=== PATIENT | male | born 1960 | race Caucasian/White ===

== ENCOUNTER 2019-01-07 09:52 | Inpatient (IN) ==
--- NOTE | 2018-12-25 08:56 | PAT Medication Instructions ---
Medication Instructions Date of Service December 25, 2018 Home Medications aspirin [Aspir-81] 81 mg PO QAM bupropion HCl [Wellbutrin XL] 150 mg PO QAM citalopram 40 mg PO QAM diclofenac sodium 75 mg PO BID losartan 25 mg PO QAM magnesium 250 mg PO HS metoprolol tartrate 25 mg PO BID pravastatin 80 mg PO QAM thiamine HCl (vitamin B1) [Vitamin B-1] 250 mg PO QPM ASK your surgeon for instructions aspirin [Aspir-81] 81 mg PO QAM - keep taking per Dr. Newman's office diclofenac sodium 75 mg PO BID (similar to Advil, Ibuprofen) - Can take Tylenol DO NOT take the morning of surgery losartan 25 mg PO QAM Take morning of surgery With a small sip of water, OTHERWISE NOTHING TO EAT OR DRINK AFTER MIDNIGHT: bupropion HCl [Wellbutrin XL] 150 mg PO QAM citalopram 40 mg PO QAM metoprolol tartrate 25 mg PO BID pravastatin 80 mg PO QAM Take evening before surgery magnesium 250 mg PO HS metoprolol tartrate 25 mg PO BID thiamine HCl (vitamin B1) [Vitamin B-1] 250 mg PO QPM Other Notes If you have any questions please call us at [phone] or [phone] or [phone] or [phone]
--- NOTE | 2018-12-25 09:17 | Anesthesiology Consultation ---
Date of Service December 25, 2018 Assessment & Plan (1) Encounter for pre-operative examination: - Patient does have HOCM. Cardiology discussed the many risks with patient from a cardio standpoint, but patient wishes to proceed with surgery. Case was discussed between Dr. Barry and Dr. Newman. I discussed the case with Dr. Beavers to make him aware of situation. Will proceed with surgery. Chart Review Chart Review: Acceptable Risk for Surgery and Patient seen in Pre Admission Testing Consults Requested cardiac (Dr. Barry (12/28)) Patient was seen by cardiology on 12/28/18 for preoperative evaluation. Per note from that visit, "I had a long discussion with the patient regarding his significant cardiac risks at his 12/28/18 office visit. I reviewed with him over the phone the results of his pharmacological stress test from 12/29/18. He is in agonizing back pain and understands his significant cardiac risks associated with surgery. He and I discussed the possibility of further cardiac evaluation and treatment at a major tertiary care center and he understands his cardiac risks, but he wishes to proceed on with the planned back surgery. I would recommend perioperative cardiac monitoring. I would recommend the patient receive his metoprolol tartrate the morning of surgery with a sip of water. In light of the patient's significant cardiac history, I would strongly recommend cardiology consultation and perioperative cardiac monitoring with your hospital cardiology team." This was discussed between Dr. Newman and Dr. Barry. Teaching & Discussion Pre-Anesthesia Teaching/Discussion Notes: Instructed NPO after midnight before surgery, except medications with 15 cc of water. Medication instructions p rovided according to the PAT guidelines. History Surgery Operation Date: 01/07/19 09:50 Proposed Procedures p L5-S1 Removal Rods, L4-L5 Posterior Lumbar Interbody Fusion - Crow Newman, Height/Weight Height: 6 ft 1 in Weight: 111.6 kg Allergies Allergy/AdvReac Type Severity Reaction Status Date / Time clonazepam AdvReac Unknown NAUSEA/VOMI Verified 12/24/18 10:12 TING frovatriptan AdvReac Unknown NAUSEA/VOMI Verified 12/24/18 10:12 TING meperidine AdvReac Unknown NAUSEA/VOMI Verified 12/24/18 10:12 TING Medications Home Medications Medication Instructions Recorded Confirmed Last Taken aspirin [Aspir-81] 81 mg PO QAM 12/24/18 12/24/18 12/24/18 bupropion HCl [Wellbutrin XL] 150 mg PO QAM 12/24/18 12/24/18 12/24/18 citalopram 40 mg PO QAM 12/24/18 12/24/18 12/24/18 diclofenac sodium 75 mg PO BID 12/24/18 12/24/18 12/24/18 losartan 25 mg PO QAM 12/24/18 12/24/18 12/24/18 magnesium 250 mg PO HS 12/24/18 12/24/18 12/23/18 metoprolol tartrate 25 mg PO BID 12/24/18 12/24/18 12/24/18 pravastatin 80 mg PO QAM 12/24/18 12/24/18 12/24/18 thiamine HCl (vitamin B1) [Vitamin 250 mg PO QPM 12/24/18 12/24/18 12/23/18 B-1] Past Medical History Medical History Anxiety and depression HOCM (hypertrophic obstructive cardiomyopathy) Hyperlipidemia Hypertension LVH (left ventricular hypertrophy) Psoriatic arthritis Rotator cuff tear RIGHT Exercise / Class Metabolic Activity III < 4 Walking/Shop/Light housework (Limited due to joint/back pain. Able to slowly climb stairs. Denies CP or SOB. ) Past Family History Family History Father Family history of stomach cancer Other Family history of breast cancer in mother Family history of colon cancer in father Past Surgical History Surgical History History of cardiac cath X2 - (MOST RECENT ~2 YR AGO) - [place]; NEGATIVE History of colonoscopy History of eye surgery PRK BOTH EYES History of knee surgery R X4 History of lumbar fusion 04/01/16: MAC #4, ETT#8, HiLo Oral, Grade 3 View History of neck surgery CAGE AND SCREWS Hx of arthroscopy R AND L HIP Past Anesthesia History No Hx of Anesthesia Complications and No Family Hx of Anesthesia Complications Mom is slow to wake up History of PONV No Hx of PONV and No Hx of Motion Sickness Social History Smoking Status: Never smoker Do You Dip or Chew Tobacco: Yes (ADVISED NPO) Hx Alcohol Use: Yes alcohol intake frequency: other Alcohol Intake Frequency Comment: 2 BEERS A YR Hx Substance Use: No substance use type: does not use Review of Systems Patient denies chest pain, shortness of breath, dyspnea on exertion, reflux, cough, wheezing, palpitations. +Joint Pain (Hips, Hands, Ankles, Knees, Shoulders, Neck, Back) +Heart Palpitations (Wore loop recorder, no significant findings) Physical Exam Vital Signs BP: 131/73 P: 65 R: 18 T: 98.3 SPO2: 96% on RA ENMT Mouth: + dental restorations (upper partial) Thyromental Distance: > or= 3.5 Finger Breadths (4) Mallampati Class: I Mouth / Teeth: 1. Partial 2. Partial Neck normal visual inspection, trachea midline, + limited neck extension and + facial hair Respiratory normal respiratory effort Auscultation: lungs clear to auscultation bilaterally Cardiovascular Rate/Rhythm: regular rate and regular rhythm Heart Sounds: no murmur Vessels: no carotid bruit Neurologic moves all extremities Psychiatric Orientation: alert and oriented x 3 Testing Laboratory Results 12/25/18 09:32 PT 10.1 Seconds (9.0-12.0) 12/25/18 09:32 INR 1.0 (0.9-1.1) 12/25/18 09:32 APTT 26.3 Seconds (21.0-31.0) 12/25/18 09:32 Blood Type A Positive 12/25/18 09:32 Antibody Screen NEGATIVE 12/25/18 09:32 [facility] 11/13/18 SODIUM: 142 POTASSIUM: 4.0 CHLORIDE: 108 H CO2: 24.0 BUN: 9.3 CREATININE: 1.00 GLUCOSE: 117 H HgBA1C: 5.8 Electrocardiogram Date: 12/25/18 Findings: + SB @ (59) and + no change from (03/19/16) Voltage criteria for LVH ST & Marked T wave abnormality, consider anterolateral ischemia Prolonged QT Chest X-Ray Date: 12/25/18 Findings: + NAD FINDINGS: The cardiac and mediastinal contours remain stable. Postsurgical changes are present within the lower cervical spine. There is a stable 1 cm left upper lobe pulmonary nodule. This is likely benign. There is no failure. There is no focal pulmonary consolidation. There are no pleural effusions.[ IMPRESSION: 1. Stable 1 cm left upper lobe pulmonary nodule. The 2 year 9 month stability, strongly favors a benign process 2. No active disease in the chest. 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 LVOT: 2.2 Stress Test Date: 12/30/18 Type: nuclear Resting EF: 53% Abnormal left ventricular wall motion and contour with large area of anteroapical dyskinesis. No pharmacologically induced myocardial ischemia on stress images. 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
[2018-12-25 11:42] LABS: Basophils # (auto) 0.04 K/uL (0-0.2); Basophils % (auto) 0.4 %; Eosinophils # (auto) 0.16 K/uL (0-0.5); Eosinophils % (auto) 1.5 %; Hemoglobin 16.1 g/dL (14.0-18.0); Immature Granulocytes # (auto) 0.02 K/uL (0.00-0.02); Immature Granulocytes % (auto) 0.2 %; Lymphocytes # (auto) 2.31 K/uL (1.2-3.4); Mean Corpuscular Hgb Conc 35.8 g/dL (32-36); Mean Corpuscular Volume 89.8 fL (80-100); Mean Platelet Volume 9.8 fL (7.4-10.4); Monocytes # (auto) 1.02 K/uL (0.11-0.59); Monocytes % (auto) 9.3 %; Neutrophils # (auto) 7.43 K/uL (1.4-6.5); Neutrophils % (auto) 67.6 %; Platelet Count 233 K/uL (130-400); RDW Coefficient of Variation 13.6 % (11.5-14.5); RDW Standard Deviation 44.7 fL (36.4-46.3); Red Blood Count 5.01 M/uL (4.7-6.1); White Blood Count 10.98 K/uL (4.8-10.8)
[2018-12-25 11:55] LABS: Partial Thromboplastin Time 26.3 Seconds (21.0-31.0); Prothrombin Time 10.1 Seconds (9.0-12.0)
--- NOTE | 2018-12-25 12:32 | XRay Report ---
XR chest Pre-admission PA/Lat CLINICAL HISTORY: Preoperative chest COMPARISON STUDY: 03/19/2016 FINDINGS: The cardiac and mediastinal contours remain stable. Postsurgical changes are present within the lower cervical spine. There is a stable 1 cm left upper lobe pulmonary nodule. This is likely be nign. There is no failure. There is no focal pulmonary consolidation. There are no pleural effusions. [ IMPRESSION: 1. Stable 1 cm left upper lobe pulmonary nodule. The 2 year 9 month stability, strongly favors a socorro gn process 2. No active disease in the chest. Electronically signed by: Jesse Cuevas M.D. 12/25/2018 12:31 PM
--- NOTE | 2019-01-05 14:30 | History and Physical Report ---
DATE OF ADMISSION: 01/07/2019 CHIEF COMPLAINT: Back pain, buttock and lower extremity difficulty, and paresthesias. HISTORY OF PRESENT ILLNESS: Kodak is delightful, I operated on him several years ago. He developed a spondylolisthesis of the spine, nerve root irritation and pressure. He cannot get comfortable. He has failed conservative measures. He has a grade 1 spondylolisthesis. PAST MEDICAL HISTORY: Heart disease, anxiety, high cholesterol, hypertension. PAST SURGICAL HISTORY: Knee surgery x4, arthroscopy of the right hip and C4-C5 fusion and lumbar spine surgery. ALLERGIES: Negative. FAMILY HISTORY: Heart disease. SOCIAL HISTORY: . No alcohol, tobacco positive, little activity. REVIEW OF SYSTEMS: Twelve-system review is negative for fevers, sweats, chills. Ear, nose and throat negative. He does have some heart beat changes and palpitations. No nausea, vomiting. No urgency, frequency. He has sleep issues, depression. He admits to joint pain, stiffness, back and buttock pain. MEDICATIONS: Include aspirin, [place], metoprolol, Lipitor and losartan. PHYSICAL EXAMINATION: GENERAL: He is 6 feet 4 inches. He is 220 pounds. He is in moderate distress. He is alert, oriented. VITAL SIGNS: Blood pressure 130/80, pulse 80, respirations 16. HEENT: Essentially normal. CARDIAC: Normal S1, S2, no S3. LUNGS: Clear to auscultation. No rales, rhonchi, wheezing. ABDOMEN: Soft and nontender. MUSCULOSKELETAL: He has pain with percussion, pain with straight leg raising, slight weakness with dorsiflexion and plantarflexion. IMAGING DATA: X-rays demonstrate spondylolisthesis, lumbar spine. ASSESSMENT: Spondylolisthesis of the spine and nerve root irritation. PLAN: Includes instructions, precautions, education provided to the patient. Procedure is going to be a PLIF procedure L4-L5, removal of the rods L5-S1.
[~2019-01-07 09:52] MED LIST: ACETAMINOPHEN 1000 MG/100 ML IV IV SCH; CEFAZOLIN 2000MG 2,000 MG/15 ML SYR IV SCH; LR 15ML/HR IV SCH; SODIUM CHLORIDE 0.9% 1,000 ML IV SCH
[2019-01-07] MEDS ORDERED: PROPOFOL IV EMULSION 10 MG/ML 20 ML VIAL IV ONE (10:45)
[2019-01-07] MEDS ORDERED: ONDANSETRON INJ 2 MG/ML 2 ML VIAL ONE ×2 (10:45→14:21)
[2019-01-07] MEDS ORDERED: fentaNYL citrate 100 MCG/2 ML VIAL ONE ×3 (10:45→14:45)
[2019-01-07] MEDS ORDERED: DEXAMETHASONE SOD INJ 4 MG/ML VIAL ONE (10:45)
[2019-01-07] MEDS ORDERED: MIDAZOLAM HCL 1 MG/ML 2ML VIAL ONE (10:54)
[2019-01-07] MEDS ORDERED: ATROPINE SULFATE 0.1 MG/ML 10ML SYR IV PRN (11:36)
[2019-01-07] MEDS ORDERED: ePHEDrine sulfate 50 MG/ML AMP IV PRN (11:36)
[2019-01-07] MEDS ORDERED: fentaNYL citrate 100 MCG/2 ML VIAL IV PRN (11:36)
[2019-01-07] MEDS ORDERED: HYDROmorphone INJ 2 MG/ML SYR/VIAL IV PRN (11:36)
[2019-01-07] MEDS ORDERED: PROMETHAZINE HCL 6.25 MG in SODIUM CHLORIDE 0.9% 50 ML IV PRN (11:36)
[2019-01-07] MEDS ORDERED: ONDANSETRON INJ 2 MG/ML 2 ML VIAL IV PRN ×2 (11:36→16:38)
[2019-01-07] MEDS ORDERED: BUPIVACAINE/EPINEPHRINE 0.5% MPF 1:200,000 30 ML VIAL ONE (12:14)
[2019-01-07] MEDS ORDERED: VANCOMYCIN HCL 1000MG/20ML VIAL ONE (12:14)
[2019-01-07] MEDS ORDERED: THROMBIN FOR SOLN 20000 UNIT KIT ONE (12:14)
[2019-01-07] MEDS ORDERED: GELATIN SPONGE SZ 100 ONE (12:14)
[2019-01-07] MEDS ORDERED: BACITRACIN INJ 50,000 UNIT VIAL ONE (12:15)
--- NOTE | 2019-01-07 12:25 | History & Physical Bridge Note ---
Date of Service January 07, 2019 History & Physical Bridge Note I have examined the patient, reviewed the History & Physical and in the interval since the performance of the History & Physical I have noted the following changes of clinical significance: no changes noted
[2019-01-07] MEDS ORDERED: GLYCOPYRROLATE 0.2 MG/ML VIAL ONE (14:21)
[2019-01-07] MEDS ORDERED: PHENYLEPHRINE HCL 10 MG/ML VIAL ONE (14:21)
[2019-01-07] MEDS ORDERED: ROCURONIUM BROMIDE 10 MG/ML 5 ML VIAL ONE (14:21)
[2019-01-07] MEDS ORDERED: NEOSTIGMINE METHYLSULFATE 5 MG/5 ML SYR ONE (14:21)
[2019-01-07] MEDS ORDERED: KETAMINE HCL INJ 50 MG/ML 10 ML VIAL ONE (14:23)
--- NOTE | 2019-01-07 15:03 | Fluoroscopy Report ---
FL spine 1V any level CLINICAL HISTORY: L5-S1 GHULAM REMOVAL, L4-L5 POSTERIOR LUMBAR COMPARISON STUDY: Lumbar spine 11/18/2018. FLUOROSCOPY TIME: 7 seconds. FINDINGS: Single fluoroscopic spot image demonstrates posterior decompression and fusion with pedicle screws and rods at L4-L5. IMPRESSION: Fluoroscopy provided for posterior decompression fusion at L4-5. Electronically signed by: Gerhard Alegre M.D. 01/07/2019 3:02 PM
--- NOTE | 2019-01-07 15:11 | Post Operative Brief Note ---
PG Immediate Post Op with CF Date of Surgery January 07, 2019 Pre & Post Diagnosis Operation Date: 01/07/19 11:40 Pre-Op Diagnosis: Degenerative Spondylolisthesis Post-Op Diagnosis: Degenerative Spondylolisthesis Procedure Operation Date: 01/07/19 11:40 Actual Procedures p L5-S1 Harlan Removal, S1 screw removal, L4-L5 Posterior Lumbar Interbody Fusion(Not Applicable) - Crow Newman DO Surgeon Crow Newman DO Joint Creaser gilma Estimated Blood Loss 350 Findings Consistent with Post-Op Diagnosis Specimens Specimen Description: None collected per surgeon Drains Hemovac Drain Complications none Overlapping Procedure I was immediately available: during the entire case.
--- NOTE | 2019-01-07 15:41 | Anesthesiology Progress Note ---
Date of Service January 07, 2019 Anesthesia Post Procedure Vital Signs Vital Signs: Temp Pulse Resp BP Pulse Ox 01/07/19 10:24 36.6 C 52 L 16 108/75 93 Pain Intensity Left Buttock: Pain Intensity: 6 Transfer of Care Handoff Completed per policy Notes Mental Status: alert / awake / arousable Patient Amnestic to Procedure: Yes Nausea / Vomiting: adequately controlled Pain: adequately controlled Airway Patency, RR, SpO2: stable & adequate BP & HR: stable & adequate Hydration State: stable & adequate Anesthetic Complications: no major complications apparent
[2019-01-07] MEDS ORDERED: DO NOT ADMINISTER PNEUMOCOCCAL VACCINE PRN (16:38)
[2019-01-07] MEDS ORDERED: PROMETHAZINE HCL 12.5 MG in SODIUM CHLORIDE 0.9% 50 ML IV PRN (16:38)
[2019-01-07] MEDS ORDERED: ONDANSETRON 4 MG TAB PO PRN (16:38)
[2019-01-07] MEDS ORDERED: DO NOT ADMINISTER FLU VACCINE PRN (16:38)
[2019-01-07] MEDS ORDERED: NALOXONE HCL 0.4 MG/1 ML VIAL/CARP IV PRN (16:38)
[2019-01-07] MEDS ORDERED: METOCLOPRAMIDE HCL INJ 5 MG/ML 2 ML VIAL IV PRN (16:38)
[2019-01-07] MEDS ORDERED: HYDROmorphone INJ 0.5 MG/0.5 ML SYR IV PRN (16:38)
[2019-01-07] MEDS ORDERED: SOD PHOSPHATE/SOD BIPHOSPHATE ENEMA 132 ML BTL PR PRN (16:38)
[2019-01-07] MEDS ORDERED: MAGNESIUM HYDROXIDE SUSP 30 ML UDC PO PRN (16:38)
[2019-01-07] MEDS ORDERED: BISACODYL 10 MG SUPP PR PRN (16:38)
[2019-01-07] MEDS: SODIUM CHLORIDE 0.9% 1000ML 1,000 ML IV SCH (16:51)
[2019-01-07] MEDS: CEFAZOLIN 2000MG 2,000 MG/15 ML SYR IV SCH (18:32)
[2019-01-07] MEDS: OXYCODONE HCL IR 5 MG TAB (IMMEDIATE RELEASE) PO PRN (19:29)
[2019-01-07] MEDS ORDERED: NON-FORMULARY MEDICATION (Magnesium 250 MG) PO SCH (21:00)
[2019-01-07] MEDS: METOPROLOL TARTRATE 25 MG TAB PO SCH (21:56)
[2019-01-07] MEDS: DOCUSATE SODIUM/SENNA 50/8.6MG TAB PO SCH (21:56)
[2019-01-07] MEDS: THIAMINE HCL 100 MG TAB PO SCH (21:57)
[2019-01-07] MEDS: ACETAMINOPHEN 1,000 MG/100 ML VIAL IV PRN (21:58)
[2019-01-08] MEDS: CEFAZOLIN 2000MG 2,000 MG/15 ML SYR IV SCH (01:27)
[2019-01-08] MEDS: POLYETHYLENE (MIRALAX) 17 GM PACK PO SCH ×4 (05:41→23:39)
[2019-01-08] MEDS: ACETAMINOPHEN 1,000 MG/100 ML VIAL IV PRN (05:41)
[2019-01-08] MEDS: OXYCODONE HCL IR 5 MG TAB (IMMEDIATE RELEASE) PO PRN ×3 (06:47→20:43)
--- NOTE | 2019-01-08 08:05 | Operative Report ---
DATE OF OPERATION: 01/07/2019 PREOPERATIVE DIAGNOSIS: Spondylolisthesis and stenosis, lumbar spine L4-L5. POSTOPERATIVE DIAGNOSIS: Spondylolisthesis and stenosis, lumbar spine L4-L5. PROCEDURE: Include 1. Posterior approach lumbar spine, removal of the S1 pedicle screws, removal of a leslie between L5 and S1. 2. Decompression at L4 and L5 lumbar spine, foraminotomy, partial facetectomy. 3. Pedicle screw instrumentation L4-L5 lumbar spine. 4. Posterior lumbar interbody fusion L4-L5. 5. Posterolateral fusion L4-L5. Prior to patient coming back to the operating room, we identified him and marked him in the preop area. We did a formal bridge note. The patient was brought back to the operating room and general intubated anesthetic provided, the patient placed prone, scrubbed, prepped and draped sterile. I made a skin incision, fascial incision. I delicately dissected down to the lumbar spine, exposing the facet joint at L4-L5 and the old implants L5 to the sacrum. I carefully took off scar tissue. He was very rigid and firm at L5-S1. I think he had a complete fusion 100%. I removed the caps at L5-S1, removed the leslie. I also removed the S1 pedicle screw. I do not think it was needed a longer that he has solid fusion in addition to be in way of extending the fusion up higher. We then decompressed the neural canal getting pressure off at L4 and L5 of the lumbar spine, foraminotomy, partial facetectomy. There was overgrowth of bone profound ligamentum flavum hypertrophy. I was pleased with the decompression. There were no injuries to the associated structures. I then went up and instrumented the spine, safely getting pedicle screws into the 4th and 5th vertebrae. We then retracted the dura over on the left hand side and I prepared the interspace for interbody fusion. I did a formal discectomy, took out all disc material. I used the nain all the way up to a size 15. A 15 implant was selected. After it was selected, it was packed with a combination of allograft called DBM, demineralized bone matrix, and some autograft from the patient. We restored lordosis was tapped into place. We advanced at the anterior aspect of the spine, clamped down the spine in lordosis, tied up the implants. We irrigated thoroughly with about 600 mL of fluid. I then bone grafted out of the transverse processes 4 and 5 to complete the 360 degree fusion. We irrigated once again, closed in layers, #1 Vicryl, 2-0 and staple gun on the skin over a Hemovac drain. Sterile dressings applied. We did close over vancomycin powder as well. Sterile dressings applied. The patient returned to PACU stable. No apparent intraoperative complications. Sponge and needle count correct. SURGEON: Crow Newman DO AIRCRAFT MAINTENANCE ENGINEER: Max Phillip PA-C. IMPLANTS USED: By the Conjunct and bone graft used was demineralized bone matrix along with autograft. I attest to the content of the Intraoperative Record and any orders documented therein. Any exception s are noted below.
[2019-01-08] MEDS: SODIUM CHLORIDE 0.9% 1000ML 1,000 ML IV SCH ×2 (08:31→21:54)
[2019-01-08] MEDS: PRAVASTATIN SOD 40 MG TAB PO SCH (08:31)
[2019-01-08] MEDS: LOSARTAN POTASSIUM 25 MG TAB PO SCH (08:31)
[2019-01-08] MEDS: ASPIRIN 81 MG ECTAB PO SCH (08:31)
[2019-01-08] MEDS: METOPROLOL TARTRATE 25 MG TAB PO SCH ×2 (08:32→20:45)
[2019-01-08] MEDS: CITALOPRAM 40 MG TAB PO SCH (08:32)
--- NOTE | 2019-01-08 09:23 | Cardiology Consultation ---
Date of Consultation January 08, 2019 Assessment & Plan (1) Hypertrophic cardiomyopathy: He is well established apical variant of hypertrophic cardiomyopathy. Fortunately, this rarely produces symptoms of obstructive nature. However, the small cavity size can occasionally to hemodynamic derangements especially in the setting of volume loss. His current blood pressure looks good. He is eating and drinking well. I think we can simply monitor his vital signs on a routine basis and reinstitute his standard medical therapy. (2) Syncope: He has a history of syncope. It appears that he has had an extensive evaluation. Certainly in the setting of hypertrophic cardiomyopathy, even apical variant of some concern regarding malignant ventricular arrhythmias. However the these episodes appear to have been related more to a profound vasodepressor effect. He does describe circumstances in which this is likely to occur which includes coughing and straining. Will attempt to maintain night usually me a and limit hypovolemia during his hospitalization. He is currently on telemetry and can be monitored for more malignant arrhythmias. (3) Palpitations: He does describe intermittent palpitations. His record suggests that he has had episodes of ventricular tachycardia. He is certainly at risk for atrial fibrillation as well. He has not report recent palpitations. No arrhythmias currently on telemetry with the exception of rare PVCs. Continue beta-nelly. History of Present Illness Reason for Consultation: Hypertrophic cardiomyopathy Requesting Physician: Paty Attending Physician: Crow Newman DO History of Present Illness The patient is a 50-year-old gentleman with a longstanding history of hypertrophic cardiomyopathy, apical variant. He presented for back surgery due to intractable back pain in evidence of sciatic nerve impingement. He was advised by his primary blender machine operator to have a cardiology evaluation while he was an inpatient. This morning the patient states that he is feeling well. He states that the burning sensation in his leg appears to have resolved subsequent to his surgery yesterday. He states that in general he has been limited by his orthopedic disease. In addition to the leg pain he has significant hip discomfort as well. Does report some mild dyspnea with activities on occasion but this is not appear to be limiting. He has had episodes of dizziness and syncope in the past, but with some lifestyle modifications he has not had an episode in nearly 3 years by his report. He will occasionally notice a sense of palpitation. Can have several episodes of palpitation in a week and then no palpitations for up to a year. The episodes themselves last approximately 1 minute and do not appear to be associated with other symptoms. No symptoms of chest pain. Did not report symptoms of orthopnea or paroxysmal nocturnal dyspnea. He does have difficulty sleeping at night due to orthopedic disease. He has occasional swelling in his lower extremities that he attributes to arthritis. Allergies Allergy/AdvReac Type Severity Reaction Status Date / Time clonazepam AdvReac Unknown NAUSEA/VOMI Verified 01/07/19 10:17 TING frovatriptan AdvReac Unknown NAUSEA/VOMI Verified 01/07/19 10:17 TING meperidine AdvReac Unknown NAUSEA/VOMI Verified 01/07/19 10:17 TING Home Medications Home Medications Medication Instructions Recorded Confirmed Type aspirin [Aspir-81] 81 mg PO QAM 12/24/18 12/24/18 History citalopram 40 mg PO QAM 12/24/18 12/24/18 History losartan 25 mg PO QAM 12/24/18 12/24/18 History magnesium 250 mg PO HS 12/24/18 12/24/18 History metoprolol tartrate 25 mg PO BID 12/24/18 12/24/18 History pravastatin 80 mg PO QAM 12/24/18 12/24/18 History thiamine HCl (vitamin B1) [Vitamin 250 mg PO QPM 12/24/18 12/24/18 History B-1] Patient History Medical History Anxiety and depression HOCM (hypertrophic obstructive cardiomyopathy) Hyperlipidemia Hypertension LVH (left ventricular hypertrophy) Psoriatic arthritis Rotator cuff tear RIGHT Surgical History History of cardiac cath X2 - (MOST RECENT ~2 YR AGO) - [place]; NEGATIVE History of colonoscopy History of eye surgery PRK BOTH EYES History of knee surgery R X4 History of lumbar fusion 04/01/16: MAC #4, ETT#8, HiLo Oral, Grade 3 View History of neck surgery CAGE AND SCREWS Hx of arthroscopy R AND L HIP Family History Father Family history of stomach cancer Other Family history of breast cancer in mother Family history of colon cancer in father Social History Preferred Language: Syriac Communication Ability: Effective Parachute Harness Rigger Required: No Beliefs That Will Affect Care: None Current Living Situation: Spouse Other Information That Helps Us Care for You: No Feels Safe at Home: Yes Smoking Status: Never smoker Do You Dip or Chew Tobacco: No ; Second Hand Exposure: No ; Tobacco Cessation Education Requested by Patient: No Hx Alcohol Use: No Hx Substance Use: No Review of Systems Review of Systems: All systems reviewed & are unremarkable except as noted in HPI & below Physical Exam Physical Exam: The patient is alert and oriented. Mood and affect appeared normal. He answered all questions appropriately. HEENT: Pupils are equal and reactive to light and accommodation. Extraocular movements are intact. The sclerae are anicteric. Neuro: Cranial nerves intact Neck: Patient's neck is supple. He has palpable carotid pulses bilaterally without bruits on auscultation. There is no evidence of jugular venous distention. The thyroid is not enlarged. Lungs: Clear to auscultation bilaterally. He has good air movement without use of accessory muscles. No rales wheezes or rhonchi. Cardiac: Heart demonstrates a regular rate and rhythm. Normal S1 and S2. No murmurs on examination. Chest: Scar in the left upper pectoral area. Pulses: The patient has palpable radial pulses bilaterally that are equal in intensity Extremities: There was no evidence of hypoperfusion. There is no cyanosis or clubbing. There is no edema. Skin: I did not appreciate any rashes on examination today. Results & Data Vital Signs (Past 12 Hours) Vital Signs Temp Pulse Pulse Resp BP Pulse Ox 01/08/19 08:11 36.8 C 76 18 124/72 96 01/08/19 03:30 36.6 C 71 18 120/71 96 01/07/19 23:35 37.1 C 66 18 107/61 92 01/07/19 23:00 71 Diagnostic Findings I reviewed his records from his blender machine operator in [place]. Echocardiogram performed in October 2018 revealed overall preserved LV systolic function with evidence of apical hypertrophy and some aneurysmal dilation of the apex. Only mild valvular heart disease. Cardiac catheterization performed in 2015 did not reveal any evidence of obstructive coronary disease. ECG Additional Comments: EKG demonstrates normal sinus rhythm with a typical pattern for hypertrophic cardiomyopathy, apical variant PG Care Time/CCT Total # of Minutes Spent Total Time Spent with Patient: Total time spent is greater than 50% in coordination of care (as documented) at patient's floor/unit and/or counseling patient:
[2019-01-08] MEDS: DOCUSATE SODIUM/SENNA 50/8.6MG TAB PO SCH (20:43)
[2019-01-08] MEDS: THIAMINE HCL 100 MG TAB PO SCH (20:43)
[2019-01-09] MEDS: POLYETHYLENE (MIRALAX) 17 GM PACK PO SCH (06:22)
[2019-01-09] MEDS: LOSARTAN POTASSIUM 25 MG TAB PO SCH (08:37)
[2019-01-09] MEDS: ASPIRIN 81 MG ECTAB PO SCH (08:37)
[2019-01-09] MEDS: CITALOPRAM 40 MG TAB PO SCH (08:37)
[2019-01-09] MEDS: METOPROLOL TARTRATE 25 MG TAB PO SCH (08:37)
[2019-01-09] MEDS: PRAVASTATIN SOD 40 MG TAB PO SCH (08:37)
--- NOTE | 2019-01-09 08:42 | Cardiology Progress Note ---
Date of Service January 09, 2019 Assessment & Plan (1) Hypertrophic cardiomyopathy: No current symptoms. Overall hemodynamics appear acceptable. He appears euvolemic. (2) Syncope: No symptoms of dizziness, lightheadedness or presyncope. No syncopal episodes and no arrhythmias identified on telemetry. (3) Palpitations: No symptoms of palpitations during this admission. Only isolated PVCs on telemetry. Certainly acceptable for discharge from a cardiology standpoint. No need for a change in his current medical therapy. Patient will follow up with his primary office services representative on a routine basis. Subjective This morning claims to be feeling well. He has some discomfort at the operative site but his leg pain is resolved. He was ambulatory yesterday did not describe symptoms of dizziness or lightheadedness. He has no presyncopal symptoms. He has not experience palpitations. No symptoms of chest discomfort or respiratory symptoms. Review of Systems Review of Systems: Per HPI Physical Exam Physical Exam: The patient is alert and oriented. Mood and affect appeared normal. He answered all questions appropriately. HEENT: Pupils are equal and reactive to light and accommodation. Extraocular movements are intact. The sclerae are anicteric. Neuro: Cranial nerves intact Lungs: Clear to auscultation bilaterally. He has good air movement without use of accessory muscles. No rales wheezes or rhonchi. Cardiac: Heart demonstrates a regular rate and rhythm. Normal S1 and S2. No murmurs on examination. Pulses: The patient has palpable radial pulses bilaterally that are equal in intensity Extremities: There was no evidence of hypoperfusion. There is no cyanosis or clubbing. There is no edema. Skin: I did not appreciate any rashes on examination today. Results & Data Vital Signs (Past 12 Hours) Vital Signs Temp Pulse Pulse Resp BP BP Pulse Ox 01/09/19 07:26 36.8 C 73 19 107/64 97 01/09/19 02:31 37 C 81 20 118/64 94 01/09/19 02:04 78 01/08/19 23:36 37.5 C 85 19 92/53 L 93 Laboratory Results Abnormal Lab Results 01/09/19 07:24 POC Glucose 152 H ECG Additional Comments: Telemetry demonstrated only isolated PVCs without other arrhythmia. PG Care Time/CCT Total # of Minutes Spent Total Time Spent with Patient: Total time spent is greater than 50% in coordination of care (as documented) at patient's floor/unit and/or counseling patient:
[2019-01-09] MEDS: OXYCODONE HCL IR 5 MG TAB (IMMEDIATE RELEASE) PO PRN (10:42)
--- NOTE | 2019-01-09 15:18 | Discharge Summary ---
SUBJECTIVE: He is alert and oriented. Minimal complaints of pain, doing well. Better motion, decreased pain, taking p.o. pain controlled. OBJECTIVE: Vital signs stable, including temperature and blood pressure. Wounds clean. [employer] had an uneventful 48-hour stay, he is doing well, he will be discharged home. His instructions and precautions are on the chart. A discharge prescription of [place] and a followup appointment has been made.
== END 2019-01-09 11:20 | disposition home or self-care (01) | DRG 455 ==
LOC: ASU 09:52 → 2S 15:24

== ENCOUNTER 2024-03-22 05:39 | Inpatient (IN) ==
--- NOTE | 2024-03-03 09:10 | PAT Medication Instructions ---
Medication Instructions Date of Service March 03, 2024 Home Medications Medication Instructions Recorded gabapentin 300 mg capsule 300 mg PO BID #60 caps 02/16/24 celecoxib 200 mg capsule (Celebrex) 200 mg PO BID PRN pain #60 caps 02/18/24 tizanidine 4 mg tablet 4 mg PO BID PRN muscle spasticity 02/18/24 #30 tabs tramadol 50 mg tablet 50 mg PO TID PRN pain #30 tabs 02/18/24 aspirin 81 mg tablet,delayed release (Aspir-) 81 mg PO QAM magnesium 250 mg tablet 250 mg PO HS metoprolol tartrate 25 mg tablet 25 mg PO QAM pravastatin 80 mg tablet 80 mg PO QAM ezetimibe 10 mg tablet 10 mg PO QAM gabapentin 300 mg capsule 300 mg PO BID ropinirole 3 mg tablet 3 mg PO BID celecoxib 200 mg capsule (Celebrex) 200 mg PO BID PRN pain tizanidine 4 mg tablet 4 mg PO BID PRN muscle spasticity tramadol 50 mg tablet 50 mg PO TID PRN pain calcium carbonate 500 mg PO QAM cholecalciferol (vitamin D3) 25 mcg (1,000 unit) capsule (Vitamin D3) 25 mcg PO QPM metoprolol tartrate 25 mg tablet 12.5 mg PO HS ASK your surgeon for instructions celecoxib 200 mg capsule (Celebrex) 200 mg PO BID PRN pain ASK your prescriber and surgeon aspirin 81 mg tablet,delayed release (Aspir-) 81 mg PO QAM DO NOT take the morning of surgery calcium carbonate 500 mg PO QAM Take morning of surgery With a small sip of water, OTHERWISE NOTHING TO EAT OR DRINK AFTER MIDNIGHT: metoprolol tartrate 25 mg tablet 25 mg PO QAM pravastatin 80 mg tablet 80 mg PO QAM ezetimibe 10 mg tablet 10 mg PO QAM gabapentin 300 mg capsule 300 mg PO BID ropinirole 3 mg tablet 3 mg PO BID tizanidine 4 mg tablet 4 mg PO BID PRN muscle spasticity (if needed) tramadol 50 mg tablet 50 mg PO TID PRN pain (if needed) Take evening before surgery magnesium 250 mg tablet 250 mg PO HS gabapentin 300 mg capsule 300 mg PO BID ropinirole 3 mg tablet 3 mg PO BID tizanidine 4 mg tablet 4 mg PO BID PRN muscle spasticity (if needed) tramadol 50 mg tablet 50 mg PO TID PRN pain (if needed) cholecalciferol (vitamin D3) 25 mcg (1,000 unit) capsule (Vitamin D3) 25 mcg PO QPM metoprolol tartrate 25 mg tablet 12.5 mg PO HS Other Notes If you have any questions please call us at [phone] or [phone] or [phone] or [phone]
--- NOTE | 2024-03-16 13:34 | Anesthesiology Consultation ---
Date of Service March 16, 2024 Assessment & Plan (1) Encounter for pre-operative examination: - cardiology pre-operative evaluation 03/19/24: "...preoperative cardiac clearance...doing overall well...resp: respiration rate is normal. Percussion is resonant and equal. Lungs are clear bilaterally. Chest is normal to inspection and palpation...last ICD check on 03/09/24 reveals 10% ventricular pacing, no episodes of arrhythmias noted...do not recommend further invasive or noninvasive cardiovascular testing or procedures prior to proceeding with planned surgery...well optimized from a cardiac standpoint to proceed..." No ICD report received, but summarized as above. - Patient was not agreeable to have appointment with PCP, per documentation PCP advised awaiting cardiology clearance. - will request most recent ICD report Lori mary. Patient was also advi sed at [facility] appointment that he would need medical clearance given end expiratory wheezing (he notes had a cold recently but feels well) and cardiology clearance. Workload note sent. Optimization form needs faxed to cardiology. Surgeon's office made aware. - cardiology office visit 06/09/23: "...follow up of cardiomyopathy...apical hypertrophic cardiomyopathy...in his usual state of health...no signs or symptoms of congestive heart failure...denies syncope or near syncope...no ICD shocks...do not have ICD interrogation reports...ICD interrogated in [place]... no indication for invasive or noninvasive cardiovascular testing or procedures..." Chart Review Chart Review: Acceptable Risk for Surgery and Patient seen in Pre Admission Testing Teaching & Discussion Pre-Anesthesia Teaching/Discussion Notes: Instructed NPO after midnight before surgery, except medications with 15 cc of water. Medication instructions provided according to the [facility] guidelines. History Surgery Operation Date: 03/22/24 07:15 Proposed Procedures p L3-L4 Posterior Laminectomy with Interbody Cage, Lateral Lumbar Interbody Fusion L3-L4, L4-L5 Non-segmented Removal of Instrumentation and Exploration of Fusion, Localized Autograft, Spinal Cord Monitoring - Poncho Suarez MD Height/Weight Height: 6 ft 1 in Weight: 111.2 kg Allergies Allergy/AdvReac Type Severity Reaction Status Date / Time clonazepam AdvReac Intermediate NAUSEA/VOMI Verified 03/02/24 13:57 TING frovatriptan AdvReac Intermediate NAUSEA/VOMI Verified 03/02/24 13:57 TING meloxicam [From Mob] AdvReac Intermediate "way out Verified 03/02/24 13:57 of it" unable to function meperidine AdvReac Intermediate NAUSEA/VOMI Verified 03/02/24 13:57 TING Medications Home Medications Medication Instructions Recorded Confirmed Last Taken aspirin 81 mg tablet,delayed 81 mg PO QAM 12/24/18 03/02/24 01/07/19 06:00 release (Aspir-) magnesium 250 mg tablet 250 mg PO HS 12/24/18 03/02/24 01/06/19 18:00 metoprolol tartrate 25 mg tablet 25 mg PO QAM 12/24/18 03/02/24 01/06/19 18:00 pravastatin 80 mg tablet 80 mg PO QAM 12/24/18 03/02/24 01/07/19 06:00 ezetimibe 10 mg tablet 10 mg PO QAM 08/28/23 03/02/24 Unknown gabapentin 300 mg capsule 300 mg PO BID #60 caps 02/16/24 03/02/24 Unknown ropinirole 3 mg tablet 3 mg PO BID 02/16/24 03/02/24 Unknown celecoxib 200 mg capsule (Celebrex) 200 mg PO BID PRN pain #60 caps 02/18/24 03/02/24 Unknown tizanidine 4 mg tablet 4 mg PO BID PRN muscle spasticity 02/18/24 03/02/24 Unknown #30 tabs tramadol 50 mg tablet 50 mg PO TID PRN pain #30 tabs 02/18/24 03/02/24 Unknown calcium carbonate 500 mg PO QAM 03/02/24 03/02/24 Unknown cholecalciferol (vitamin D3) 25 25 mcg PO QPM 03/02/24 03/02/24 Unknown mcg (1,000 unit) capsule (Vitamin D3) metoprolol tartrate 25 mg tablet 12.5 mg PO HS 03/02/24 03/02/24 Unknown Past Medical History Medical History Anxiety and depression Cervical radiculopathy Degenerative disc disease History of palpitations no recent issues, controlled with medication HOCM (hypertrophic obstructive cardiomyopathy) reason for cardiac defibrillator Hx of syncope in 2021, no issues since having defibrillator placed. Hyperlipidemia Hypertension controlled, stable per pt Lumbar spinal stenosis LVH (left ventricular hypertrophy) Migraine chronic Psoriatic arthritis Rotator cuff tear right - (no longer does physical therapy) will have surgery in the future. Patient denies h/o stroke, seizures, heart attack, heart failure, DM, blood clots/DVTs or blood transfusions. Exercise / Class Metabolic Activity III < 4 Walking/Shop/Light housework (denies chest discomfort or shortness of breath with usual activities) Past Family History Family History Father Osteoporosis Heart disease Myocardial infarction Colorectal cancer Hypertension Mother Osteoporosis Breast cancer Other No family history of adverse response to anesthesia Denies family history of Ovarian cancer Prostate cancer Diabetes Crohn's disease Dementia Kidney disease Lung cancer Stroke Past Surgical History Surgical History History of cardiac cath X2 - (most recent ~2018) - [facility] [place]; no stents History of cardiac defibrillator placement hypertrophic cardiomyopathy - [facility] [place] 2020, follows with Dr Sweet ([facility]) last checked every 6 months and has a home monitor system. MedWhat device History of colonoscopy last had ~January 2024 History of knee surgery Right x7 History of lumbar fusion 04/01/16: MAC #4, ETT#8, HiLo Oral, Grade 3 View L4-5, L5-S1 History of photorefractive keratectomy (PRK) bilateral History of right knee joint replacement S/P cervical spinal fusion (about ~) cage and screws - unsure of what levels. limited side to side and limited looking upward (denies any difficulty intubating since) S/P hip arthroscopy bilateral Past Anesthesia History No Hx of Anesthesia Complications and No Family Hx of Anesthesia Complications History of PONV No Hx of PONV and No Hx of Motion Sickness Social History Smoking Status: Former smoker Do You Dip or Chew Tobacco: Yes (1 can/3 days (advised on policy)) Smoking End Date: 11/2023 Hx Alcohol Use: Yes alcohol intake frequency: holidays/special occasions only Hx Substance Use: No substance use type: does not use Review of Systems Patient denies chest pain, shortness of breath, dyspnea on exertion, snoring, witnessed apneas, reflux, fever, chills, cough, wheezing, or palpitations. Physical Exam Vital Signs Vitals BP 130/75 P 61 TEMP 97.8 SP02 95% on RA RESP 18 Physical Patient resting comfortably in chair in no acute distress, alert and oriented, responding appropriately throughout visit Full cervical extension range of motion without pain TMD 3.5 finger breadths Mallampati Score 2 Dentition: loose teeth and upper plate, denies chipped teeth, caps/crowns, implants or bridges Lungs: normal respiratory effort. Good air movement, end expiratory wheezing, no rales or rhonchi Cardiac: regular rate and rhythm, no murmurs noted Carotid arteries: negative bruit bilat Lab Results Anesthesia Preop Results Results Anesthesia Widget: WBC 9.00 K/ul (4.8-10.8) 02/18/24 Hgb 16.5 g/dl (14.0-18.0) 02/18/24 Hct 47.9 % (42.0-52.0) 02/18/24 Plt 235 K/uL (130-400) 02/18/24 Na 140 mmol/L (136-145) 02/18/24 K 4.0 mmol/L (3.5-5.1) 02/18/24 Cl 106 mmol/L (98-107) 02/18/24 CO2 24 mmol/L (21-32) 02/18/24 BUN 15 mg/dl (6-23) 02/18/24 Creat 1.02 mg/dl (0.6-1.4) 02/18/24 Glucose Level 98 mg/dl (70-99(Fasting)) 02/18/24 PT 10.6 Seconds (9.0-12.0) 03/16/24 PTT 24 Seconds (21-31) 03/16/24 INR 1.0 (0.9-1.1) 03/16/24 Blood Type A Positive 03/16/24 Antibody Screen NEGATIVE 03/16/24 Testing Electrocardiogram Date: 03/16/24 Atrial paced, ventricular sensed electronic pacemaker, rate 60 bpm LVH with repolarization abnormality Chronic T wave inversion in multiple leads Prolonged QT Chest X-Ray Date: 03/16/24 1. Cardiomegaly and cardiac AICD without radiographic evidence of congestive failure. 2. No airspace consolidation or pleural effusion is identified. Echocardiogram Date: 11/10/18 EF 55-60% Cardiomyopathy with LVH Aneurysmal changes of the LV apex Has been previously said to have a hypertrophic obstructive cardiomyopathy (apical variant) Mild mitral and tricuspid valvular insufficiency Other Testing Lumbar spine MRI 03/08/24 Degenerative changes with disc extrusion at L3-L4 resulting in moderate canal s tenosis, AP diameter 6 mm, and severe left and moderate right neural foraminal stenosis.
[2024-03-22] MEDS: LR 60ML/HR IV SCH (06:22)
[2024-03-22] MEDS: ACETAMINOPHEN 500 MG TAB PO SCH (06:23)
[2024-03-22] MEDS: GABAPENTIN 600 MG DOSE PO SCH (06:23)
[2024-03-22] MEDS: LR 15ML/HR IV SCH (06:27)
[2024-03-22] MEDS ORDERED: ROCURONIUM BROMIDE 10 MG/ML 5 ML VIAL IV ONE ×12 (06:48→11:37)
[2024-03-22] MEDS ORDERED: DEXAMETHASONE SOD INJ 4 MG/ML VIAL ONE (06:48)
[2024-03-22] MEDS ORDERED: LIDOCAINE 2% 2 ML VIAL/AMP(20MG/ML) INFIL ONE ×2 (06:48)
[2024-03-22] MEDS ORDERED: ONDANSETRON INJ 2 MG/ML 2 ML VIAL ONE (06:48)
[2024-03-22] MEDS ORDERED: fentaNYL citrate PF 100 MCG/2 ML VIAL ONE ×2 (06:48→08:24)
[2024-03-22] MEDS ORDERED: PROPOFOL IV EMULSION 10 MG/ML 20 ML VIAL IV ONE (06:48)
[2024-03-22] MEDS ORDERED: MIDAZOLAM HCL 1 MG/ML 2ML VIAL ONE (06:48)
[2024-03-22] MEDS ORDERED: ONDANSETRON INJ 2 MG/ML 2 ML VIAL IV PRN ×2 (07:14→13:48)
[2024-03-22] MEDS ORDERED: ePHEDrine sulfate 50 MG/ML AMP IV PRN (07:14)
[2024-03-22] MEDS ORDERED: ATROPINE SULFATE 0.1 MG/ML 10ML SYR IV PRN (07:14)
[2024-03-22] MEDS ORDERED: PROMETHAZINE HCL 6.25 MG in SODIUM CHLORIDE 0.9% 50 ML IV PRN (07:14)
[2024-03-22] MEDS ORDERED: HYDROmorphone INJ 2 MG/ML SYR/VIAL IV PRN (07:14)
[2024-03-22] MEDS ORDERED: PHENYLEPHRINE HCL 10 MG/ML VIAL ONE (07:26)
--- NOTE | 2024-03-22 07:28 | History & Physical Bridge Note ---
Date of Service March 22, 2024 History & Physical Bridge Note I have examined the patient, reviewed the History & Physical and in the interval since the performance of the History & Physical I have noted the following changes of clinical significance: no changes noted
[2024-03-22] MEDS ORDERED: PHENYLEPHRINE 100MCG/ML 10ML SYR IV ONE (08:06)
[2024-03-22] MEDS: ceFAZolin 2000MG 2,000 MG/15 ML SYR IV SCH (08:32)
[2024-03-22] MEDS ORDERED: ePHEDrine sulfate 50 MG/5 ML SYR ONE (09:20)
[2024-03-22] MEDS ORDERED: SUGAMMADEX SODIUM 200 MG/2 ML VIAL IV ONE (10:14)
[2024-03-22] MEDS: BUPIVACAINE/EPINEPHRINE 0.5% MPF 1:200,000 30 ML VIAL ONE (10:21)
[2024-03-22] MEDS: VANCOMYCIN HCL 1000MG/20ML VIAL ONE (10:22)
[2024-03-22] MEDS ORDERED: MoRPHine SULFATE 2 MG/ML CARP ONE (12:42)
[2024-03-22] MEDS: fentaNYL citrate PF 100 MCG/2 ML VIAL IV PRN (13:26)
[2024-03-22] MEDS ORDERED: DO NOT ADMINISTER PNEUMOCOCCAL VACCINE PRN (13:48)
[2024-03-22] MEDS ORDERED: HYDROmorphone INJ 0.5 MG/0.5 ML SYR IV PRN (13:48)
[2024-03-22] MEDS ORDERED: hydrOXYzine HCl 25 MG TAB PO PRN (13:48)
[2024-03-22] MEDS ORDERED: LORazepam 0.5 MG TAB PO PRN (13:48)
[2024-03-22] MEDS ORDERED: ACETAMINOPHEN 500 MG TAB PO PRN (13:48)
[2024-03-22] MEDS ORDERED: DO NOT ADMINISTER FLU VACCINE PRN (13:48)
[2024-03-22] MEDS ORDERED: SOD PHOSPHATE/SOD BIPHOSPHATE ENEMA 132 ML BTL PR PRN (13:48)
[2024-03-22] MEDS ORDERED: ONDANSETRON 4 MG OD TAB PO PRN (13:48)
[2024-03-22] MEDS ORDERED: diphenhydrAMINE Capsule 25 MG CAP PO PRN (13:48)
[2024-03-22] MEDS ORDERED: MAGNESIUM HYDROXIDE SUSP 30 ML UDC PO PRN (13:48)
[2024-03-22] MEDS ORDERED: FAMOTIDINE 20 MG TAB PO PRN (13:48)
[2024-03-22] MEDS ORDERED: ALUMINUM/MAGNESIUM SUSP 30 ML UDC PO PRN (13:48)
[2024-03-22] MEDS ORDERED: bisacodyL 10 MG SUPP PR PRN (13:48)
[2024-03-22] MEDS ORDERED: NALOXONE HCL 0.4 MG/1 ML VIAL/CARP IV PRN (13:48)
[2024-03-22] MEDS ORDERED: LORazepam 2 MG/1 ML VIAL IV PRN (13:48)
[2024-03-22] MEDS ORDERED: PROMETHAZINE 12.5 MG/50.5 ML BAG IV PRN (13:48)
[2024-03-22] MEDS ORDERED: METOCLOPRAMIDE HCL INJ 5 MG/ML 2 ML VIAL IV PRN (13:48)
--- NOTE | 2024-03-22 13:48 | Post Operative Brief Note ---
PG Immediate Post Op with CF Date of Surgery March 22, 2024 Pre & Post Diagnosis Operation Date: 03/22/24 07:15 Pre-Op Diagnosis: Lumbar Spinal Stenosis Due to Adjacent Segment Disease after Fusion Procedure Post-Op Diagnosis: Lumbar Spinal Stenosis Due to Adjacent Segment Disease after Fusion Procedure I identified the patient and participated in the time-out.: Yes Procedure Operation Date: 03/22/24 07:15 Actual Procedures p L3-L4 Posterior Fusion, Lateral Lumbar Interbody Fusion Localized Autograft, Spinal Cord Monitoring(Not Applicable) - Poncho Suarez MD s L3-L4, L4-L5 Non-segmented Removal of Instrumentation,(Not Applicable) - Poncho Suarez MD Surgeon Poncho Suarez MD Couture Dressmaker none Estimated Blood Loss 100 Findings Consistent with Post-Op Diagnosis Specimens Specimen Description: no specimen collected per surgeon Drains [place] Catheter
--- NOTE | 2024-03-22 13:51 | Fluoroscopy Report ---
FL lumbar spine 2-3V CLINICAL HISTORY: LUMBAR COMPARISON STUDY: MRI 03/08/2024 FLUOROSCOPY TIME: 178.2 seconds FLUOROSCOPY IMAGES: 10 EXPOSURE DOSE: 135.71 mGy FINDINGS: The first set of images demonstrates chronic posterior interbody leslie and screw fusion hardw are L4-L5 along with L4-L5 and L5-S1 discectomy. Subsequent images demonstrate L3-L4 discectomy. The last image demonstrates posterior approach pedicle screws at L2-L3. Status post removal of the L5 ped icle screws. A surgical sponge and retractor devices are noted on the last image. Note that these nery ges were submitted following completion of the surgery. IMPRESSION: Fluoroscopic assistance as above. ACT 112: Negative or not required by law. Electronically signed by: Kasi Trmible M.D. 03/22/2024 1:50 PM
[2024-03-22] MEDS ORDERED: tiZANidine HCL 4 MG TABLET PO PRN (13:55)
--- NOTE | 2024-03-22 13:58 | Anesthesiology Progress Note ---
Date of Service March 22, 2024 Anesthesia Post Procedure Vital Signs Vital Signs: Temp Pulse Pulse Resp BP Pulse Ox O2 Del Method 03/22/24 13:45 82 20 133/63 96 Room Air 03/22/24 13:35 82 15 131/75 95 Room Air 03/22/24 13:25 84 16 130/80 94 Room Air 03/22/24 13:19 36.9 C 81 16 119/70 97 Room Air 03/22/24 06:05 36.6 C 60 18 129/76 94 Room Air Pain Intensity Back: Pain Intensity: 3 Transfer of Care Handoff Completed per policy Notes Mental Status: alert / awake / arousable Patient Amnestic to Procedure: Yes Nausea / Vomiting: adequately controlled Pain: adequately controlled Airway Patency, RR, SpO2: stable & adequate BP & HR: stable & adequate Hydration State: stable & adequate Anesthetic Complications: no major complications apparent
[2024-03-22] MEDS ORDERED: ACETAMINOPHEN 1,000 MG/100 ML VIAL IV PRN (14:00)
[2024-03-22] MEDS: GELATIN SPONGE 12-7MM ONE (16:51)
[2024-03-22] MEDS: THROMBIN 5000 UNITS KIT ONE (16:51)
[2024-03-22] MEDS: LACTATED RINGER'S 1,000 ML IV SCH (16:52)
--- NOTE | 2024-03-22 17:02 | Hospitalist Consultation ---
<Statement entered by Zoya Lemons MD - 03/22/24 17:38> I have reviewed vital signs, chart notes, labs and imaging. I have also discussed the management of the patient with the LORA and I agree with the exam findings documented in the history and physical examination and the documented assessment and plan unless otherwise stated below. 63 y/o with HOCM postop from lumbar spinal surgery For the HOCM avoid volume depletion and continue metoprolol. Resume baby aspirin when safe from a spine surgery perspective. Date of Consultation March 22, 2024 Assessment & Plan (1) Lumbar spinal stenosis due to adjacent segment disease after fusion procedure: S/p L3-L4 fusions with L3-L4, L4-L5 non-segmented removal of instrumentation with Dr. Suarez 03/22 - pain control/IV fluids/DVT proh per primary team - EBL 100 cc PT/OT (2) Hypertrophic cardiomyopathy: Follow with [facility]OCM clinic. Has ICD in place - monitor volume status, avoid dehydration Plan Chronic stable medical conditions: * HTN - continue metoprolol * HLD - continue pravastatin, ezetimibe Thank you for allowing us to participate in the care of this patient, medicine will sign off. Please reach out with any new questions or concerns. History of Present Illness Reason for Consultation: surgery Requesting Physician: Erick Attending Physician: Poncho Suarez MD History of Present Illness Mr. Naylor is a 63M with a PMHx of HOCM, HTN, HLD and migraines who presents to the hospital for elective back surgery with Dr. Suarez. Patient seen post operatively - significant other in bed with patient. Patient denies pain, happy to have food as we was waiting in PACU for a prolonged time. He denies pain currently has not been out of bed yet. Tolerating food without issue. Uses chewing tobacco states he has for 53 years and does not plan on stopping. Offered nicotine patch, he declined. Uses walker/cane occasionally post operatively. Denies CPAP or home oxygen use. Allergies Allergy/AdvReac Type Severity Reaction Status Date / Time clonazepam AdvReac Intermediate NAUSEA/VOMI Verified 03/22/24 06:01 TING frovatriptan AdvReac Intermediate NAUSEA/VOMI Verified 03/22/24 06:01 TING meloxicam [From Mobic] AdvReac Intermediate "way out Verified 03/22/24 06:01 of it" unable to function meperidine AdvReac Intermediate NAUSEA/VOMI Verified 03/22/24 06:01 TING Home Medications Medication Instructions Recorded Confirmed Type aspirin 81 mg tablet,delayed 81 mg PO QAM 12/24/18 03/22/24 History release (Aspir-) magnesium 250 mg tablet 250 mg PO HS 12/24/18 03/22/24 History metoprolol tartrate 25 mg tablet 25 mg PO QAM 12/24/18 03/22/24 History pravastatin 80 mg tablet 80 mg PO QAM 12/24/18 03/22/24 History ezetimibe 10 mg tablet 10 mg PO QAM 08/28/23 03/22/24 History gabapentin 300 mg capsule 300 mg PO BID #60 caps 02/16/24 03/22/24 Rx ropinirole 3 mg tablet 3 mg PO BID 02/16/24 03/22/24 History celecoxib 200 mg capsule (Celebrex) 200 mg PO BID PRN pain #60 caps 02/18/24 03/22/24 Rx tizanidine 4 mg tablet 4 mg PO BID PRN muscle spasticity 02/18/24 03/22/24 Rx #30 tabs tramadol 50 mg tablet 50 mg PO TID PRN pain #30 tabs 02/18/24 03/22/24 Rx calcium carbonate 500 mg PO QAM 03/02/24 03/22/24 History cholecalciferol (vitamin D3) 25 25 mcg PO QPM 03/02/24 03/22/24 History mcg (1,000 unit) capsule (Vitamin D3) metoprolol tartrate 25 mg tablet 12.5 mg PO HS 03/02/24 03/22/24 History Patient History Medical History Anxiety and depression Cervical radiculopathy Degenerative disc disease History of palpitations no recent issues, controlled with medication HOCM (hypertrophic obstructive cardiomyopathy) reason for cardiac defibrillator Hx of syncope in 2020, no issues since having defibrillator placed. Hyperlipidemia Hypertension controlled, stable per pt Lumbar spinal stenosis LVH (left ventricular hypertrophy) Migraine chronic Psoriatic arthritis Rotator cuff tear right - (no longer does physical therapy) will have surgery in the future. Surgical History History of cardiac cath X2 - (most recent ~2018) - [facility] [place]; no stents History of cardiac defibrillator placement hypertrophic cardiomyopathy - [facility] [place] 2020, follows with Dr Sweet ([facility]) last checked every 6 months and has a home monitor system. COZero device History of colonoscopy last had ~January 2024 History of knee surgery Right x7 History of lumbar fusion 04/01/16: MAC #4, ETT#8, HiLo Oral, Grade 3 View L4-5, L5-S1 History of photorefractive keratectomy (PRK) bilateral History of right knee joint replacement S/P cervical spinal fusion (about ~) cage and screws - unsure of what levels. limited side to side and limited looking upward (denies any difficulty intubating since) S/P hip arthroscopy bilateral Family History Father Osteoporosis Heart disease Myocardial infarction Colorectal cancer Hypertension Mother Osteoporosis Breast cancer Other No family history of adverse response to anesthesia Denies family history of Ovarian cancer Prostate cancer Diabetes Crohn's disease Dementia Kidney disease Lung cancer Stroke Social History Smoking Status: Former smoker Tobacco Type: Cigarettes and Smokeless Tobacco (Dip or Chew) Smoking End Date: 11/2023; Second Hand Exposure: No; Do You Dip or Chew Tobacco: Yes (1 can/3 days (advised on policy)); Tobacco Cessation Education Requested by Patient: No Hx Alcohol Use: Yes Hx Substance Use: No Preferred Language: Macedonian Communication Ability: Effective Relocation Associate Required: No Beliefs That Will Affect Care: None Current Living Situation: Spouse Other Information That Helps Us Care for You: No Feels Safe at Home: Yes Safety Concerns: Feels Safe At This Time Assistive Devices: Cane and Denture - Upper Assistive Devices Comment: upper partial Review of Systems Review of Systems: All systems reviewed & are unremarkable except as noted in Subjective Physical Exam Physical Exam: General: NAD, VS as above Resp: normal respiratory effort, lungs clear to auscultation on room air CV: RRR, + murmur, Abd: normal bowel sounds, non tender, no hepatosplenomegaly Extremities: Moves all extremities, no edema, jeni hose in place Back: dressing c/d/i Neuro: A&O x3, Skin: intact, no lesions noted Results & Data Results & Data Vital Signs (Past 12 Hours) Vital Signs Temp Pulse Pulse Resp BP Pulse Ox O2 Del Method 03/22/24 16:31 97.9 F 73 16 121/60 96 Room Air 03/22/24 15:55 63 16 102/56 L 94 Room Air 03/22/24 15:25 61 14 112/60 92 Room Air 03/22/24 15:10 66 12 105/63 94 Room Air 03/22/24 14:55 70 16 105/66 93 Room Air 03/22/24 14:40 64 10 L 110/68 92 Room Air 03/22/24 14:25 66 14 116/72 94 Room Air 03/22/24 14:10 66 8 L 113/73 93 Room Air 03/22/24 13:55 97.7 F 78 15 107/77 96 Room Air 03/22/24 13:45 82 20 133/63 96 Room Air 03/22/24 13:35 82 15 131/75 95 Room Air 03/22/24 13:25 84 16 130/80 94 Room Air 03/22/24 13:19 98.4 F 81 16 119/70 97 Room Air 03/22/24 06:05 97.9 F 60 18 129/76 94 Room Air PG Care Time/CCT Total # of Minutes Spent Total Time Spent with Patient: Total time spent is greater than 50% in coordination of care (as documented) at patient's floor/unit and/or counseling patient: Coding Level of Care Code 42410 IN/OBS CONSULT LVL 3,45M Diagnoses Lumbar spinal stenosis due to adjacent segment disease after fusion procedure M48.061; M51.36 Hypertrophic cardiomyopathy I42.2
[2024-03-22] MEDS: METOPROLOL TARTRATE 25 MG TAB PO SCH (21:04)
[2024-03-22] MEDS: GABAPENTIN 300 MG CAP PO SCH (21:04)
[2024-03-22] MEDS: rOPINIRole HCL 1 MG TABLET PO SCH (21:05)
[2024-03-22] MEDS: DOCUSATE SODIUM/SENNA 50/8.6MG TAB PO SCH (21:10)
[2024-03-22] MEDS: ceFAZolin 1000MG 1,000 MG/7.5 ML SYR IV SCH (21:31)
[2024-03-23] MEDS: POLYETHYLENE (MIRALAX) 17 GM PACK PO SCH (05:03)
[2024-03-23] MEDS: EZETIMIBE 10 MG TAB PO SCH (08:07)
[2024-03-23] MEDS: METOPROLOL TARTRATE 25 MG TAB PO SCH (08:08)
[2024-03-23] MEDS: oxyCODONE/ACETAMINOPHEN 5mg/325mg TAB PO PRN (18:31)
[2024-03-23 19:38] VITALS: BP 123/71
[2024-03-24 06:18] VITALS: PULSE 88; RESP 16; TEMP 97.5; O2SAT 96
--- NOTE | 2024-03-24 11:43 | Orthopedic Progress Note ---
Date of Service March 24, 2024 Subjective Patient seen and examined, he notes an improvement of his preoperative symptoms in terms of back pain and lower extremity numbness and tingling. He notes he can walk in a more upright position and has better feeling in his lower extremities. He has some incisional pain. Operative site still with some serosanguineous drainage Impression/plan: Patient doing well with improvement of preoperative symptoms 2 days status post surgery. Will discharge home today with follow-up in 2 weeks. Review of Systems All systems reviewed & are unremarkable except as noted in HPI & below. Physical Exam . Results & Data Results & Data Laboratory Results . Diagnostic Findings . PG Care Time/CCT Total # of Minutes Spent Total Time Spent with Patient: Total time spent is greater than 50% in coordination of care (as documented) at patient's floor/unit and/or counseling patient: Coding Level of Care Code 64908 Post Operative Follow-Up
--- NOTE | 2024-03-24 11:48 | Discharge Summary ---
Date of Service March 24, 2024 Admission HPI (Per Admitting) Lumbar stenosis, adjacent segment degeneration. Principal Diagnosis Same as "Discharge Diagnosis" noted below under Discharge Instructions. Discharge Exam . 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 PG Care Time/CCT Total # of Minutes Spent Total Time Spent with Patient: Total time spent is greater than 50% in coordination of care (as documented) at patient's floor/unit and/or counseling patient: Discharge Plan Discharge Items Patient Disposition: Home - Self-Care Reason For Visit: Lumbar Spinal Stenosis Due to Adjacent Segment Dis Discharge Diagnosis: Same. Activity: As commented below Lifting: No more than 10 pounds Bathing: May shower/bathe in 3 days Driving/Machine Use: Resume 3 days after discharge Non-emergency contact: Surgeon Call non-emergency contact if: your pain is worsening Follow-up/Referrals: Maria Del Carmen Paulino MD [Primary Care Provider] - Diet: Regular Addtl Attending Provider Instructions: Percocet prescription to be sent through ambulatory chart. Pending Studies at Discharge: No Stand-Alone Forms: [facility] [employer], Smoking Cessation Medications and DC Order Prescriptions: Continued ezetimibe 10 mg tablet 10 mg PO QAM tramadol 50 mg tablet 50 mg PO TID PRN (Reason: pain) Qty: 30 0RF Rx Instructions: In addition to the tramadol, take acetaminophen either regular strength or extra, 2 pills. tizanidine 4 mg tablet 4 mg PO BID PRN (Reason: muscle spasticity) Qty: 30 1RF ropinirole 3 mg tablet 3 mg PO BID gabapentin 300 mg capsule 300 mg PO BID Qty: 60 0RF aspirin [Aspir-81] 81 mg Tablet,Delayed Release (Dr/Ec) 81 mg PO QAM pravastatin 80 mg Tablet 80 mg PO QAM magnesium 250 mg Tablet 250 mg PO HS metoprolol tartrate 25 mg Tablet 25 mg PO QAM metoprolol tartrate 25 mg Tablet 12.5 mg PO HS calcium carbonate 500 mg calcium (1,250 mg) Tablet 500 mg PO QAM cholecalciferol (vitamin D3) [Vitamin D3] 25 mcg (1,000 unit) Capsule 25 mcg PO QPM Held celecoxib [Celebrex] 200 mg capsule 200 mg PO BID PRN (Reason: pain) Qty: 60 1RF Hold Instructions: Resume on 05/31/24. Discharge Orders: Discharge Order (Routine); Ordered 03/24/24 Ordered By: Poncho Suarez Admission Data Admit Date/Time: 03/23/24 07:49 Attending Provider: Poncho Suarez Admit Provider: Poncho Suarez Primary Care Provider: Maria Del Carmen Paulino
--- NOTE | 2024-03-24 13:39 | Operative Report ---
PG Post Operative Report Pre & Post Diagnosis Operation Date: 03/22/24 07:15 Pre-Op Diagnosis: Lumbar Spinal Stenosis Due to Adjacent Segment Disease after Fusion Procedure Post-Op Diagnosis: Lumbar Spinal Stenosis Due to Adjacent Segment Disease after Fusion Procedure I identified the patient and participated in the time-out.: Yes Procedure Operation Date: 03/22/24 07:15 Actual Procedures p L3-L4 Posterior Fusion, Lateral Lumbar Interbody Fusion Localized Autograft, Spinal Cord Monitoring(Not Applicable) - Poncho Suarez MD s L3-L4, L4-L5 Non-segmented Removal of Instrumentation,(Not Applicable) - Poncho Suarez MD Surgeon Poncho Suarez MD Frame Straightener none Estimated Blood Loss 100 Findings Consistent with Post-Op Diagnosis Specimens none Description of Procedure 1. L3-4 right lateral interbody arthrodesis. (96574) 2. Insertion of intervertebral cage, NuVasive cohere XL 10 x 18 x 55 mm lordotic. (94200) 3. L3-4 posterior lumbar arthrodesis. (48234) 4. L3-4 posterior nonsegmental instrumentation. (69476) 5. Removal of posterior nonsegmental instrumentation L4-5. (58986) 6. Exploration of fusion L4-5. (63952) Patient was taken the operating room and after adequate esthesia was carefully positioned in the left lateral decubitus position right side up for a right- sided lateral approach to the L3-4 level. After carefully positioned and checked for positioning, preprepped was performed followed by fluoroscopy brought and checking for the positioning and approach region and working for the approximate location of the incision. This was followed by prep and drape, then began the procedure with a transverse incision just over the iliac crest on the right side and through this I carefully advanced down through the subcutaneous layers and into the retroperitoneal region. Once there is able to sweep the abdominal contents anteriorly, and then inserted the initial dilator from the NuVasive set and located on the lateral aspect of the L3-4 disc space approximately midline. After checking with monitoring, a guidewire was inserted followed by the additional dilators. The access apparatus was then obtained and then inserted and adjustments were made visual inspection also with the monitoring probe was then completed and then the opal was then inserted. I have not accessed the disc base with incising the annulus followed by removal of disc material and a thorough fashion using a combination of nain and curettes. With a thorough discectomy completed, I then went through trials selecting the size cage as noted. Fusion materials were then inserted into the disc space and also within the cage itself and then it was then tapped into position with excellent position on AP and lateral views. This completed, the access apparatus was removed millimeters noted, the operative site was irrigated followed by placement of vancomycin powder, and also closure using 0, 2-0 Vicryl sutures and melina for the skin, sterile dressing was applied. The patient was then repositioned prone on the Olvin frame, prep was performed after marking for the incision using fluoroscopy. After prep and drape was completed, a midline incision was then carried down to the subcutaneous tissues and down into the region of the prior fusion surgery which was at L4-5 and also to the area to be addressed at L3-4. The prior instrumentation at L4-5 was exposed, also the eventual place for the instrumentation of L3, and once completed I then removed the setscrews of the pedicle screws over the removal of the rods. The fusion mass was uncovered bilaterally with removal of scar tissue exposing the bony fusion region. I then distracted and compressed on the pedicle screws, no motion was detected and there are not appear to be any defects in the fusion mass posteriorly, at this point all screws were then removed. I then used fluoroscopy to locate the start point for the L3 pedicle screws, after using high-speed bur to make the initial point gearshift probes were then inserted followed by tap and insertion of 6.5 millimeter screws, and then an additional 6.5 millimeter screws were inserted at the L4 level. All screws had excellent purchase and positioning, the fusion materials were then inserted posteriorly in the facet region also extending from the lamina of L3 down to the posterior fusion mass at L4 completing the fusion posteriorly and the screws and rods were locked into position. 2 layers 0 Vicryl sutures were placed along with 2-0 Vicryl sutures and melina for skin, vancomycin powder have been placed. Patient tolerated procedure well was taken recovery room satisfactory condition. I attest to the content of the Intraoperative Record and any orders documented therein. Any exceptions are noted below.
== END 2024-03-24 13:49 | disposition home or self-care (01) | DRG 402 ==
LOC: ASU 05:39 → PACUINP 05:39 → 3E 16:40